=== PATIENT | male | born 1960 | race Caucasian/White ===

== ENCOUNTER → 2020-11-11 04:12 | Outpatient (CLI) | payer BC, SELFPAY ==
[2020-11-11 19:03] LABS: SARS-CoV-2 RNA PCR Negative
== END ==
PROVIDERS: PCP Family Medicine; Visit Provider Internal Medicine Gastroenterology
DX: Z01.812 Encounter for preprocedural laboratory examination (principal); Z20.822 Contact with and (suspected) exposure to COVID-19
CPT/HCPCS: C9803; U0003; U0005

== ENCOUNTER 2020-11-14 01:37 | Day surgery (SDC) | payer BC, SELFPAY ==
[2020-10-30 10:44] VITALS: BMI 33.5
[2020-11-14 06:46] VITALS: BP 147/89; PULSE 67; RESP 16; TEMP 35.6; O2SAT 99
[2020-11-14] MEDS: LACTATED RINGERS 1,000 ML 150 ML IV CONT (06:55)
--- NOTE | 2020-11-14 07:14 | PM.HPGS ---
History of Present Illness History of Present Illness Consent: Risks, benefits, and alternatives have been discussed and questions answered. Patient agrees to proceed with procedure. Chief complaint: neoplasm screening Narrative: Nael Head is a 59 year old male referred for colon cancer screening Review of Systems Review of Systems: All systems reviewed & are unremarkable except as noted in HPI and below PMFSH Family History Family History Mother Hypertension Family history of type 2 diabetes mellitus Social History Social History Alcohol intake: current Drinks per week: 4 Living arrangements: with family Gender identity (if verbalized by the patient): Male Spiritual care concerns: No Meds Home Medications and Allergies Home Medications Medication Instructions Recorded Confirmed Type albuterol sulfate 90 mcg/actuation 1 inh INHALATION Q4H #8.5 g 09/18/20 10/31/20 Rx aerosol inhaler budesonide-formoterol HFA 160 2 puff INHALATION Q12H #10.2 gm 09/22/20 10/31/20 Rx mcg-4.5 mcg/actuation aerosol inhaler Allergies Allergy/AdvReac Type Severity Reaction Status Date / Time No Known Allergies Allergy Mild Verified 11/14/20 06:41 Vital Signs Vital Signs - 24 hr 11/14/20 06:46 Temperature 35.6 C L Pulse Rate 67 Respiratory Rate 16 Blood Pressure 147/89 H Pulse Oximetry 99 Exam Resp: Auscultation: clear to auscultation bilaterally Cardio: Rate: regular rate Rhythm: regular rhythm GI: GI Palp: Yes Soft to palpation and No Tenderness to palpation present (GI) Assessment and Plan Assessment and plan (1) Colon cancer screening: Code(s): Z12.11 - Encounter for screening for malignant neoplasm of colon Status: Acute Assessment and Plan: Colonoscopy with possible biopsy or polypectomy or cautery or injection of substances.
--- NOTE | 2020-11-14 07:40 | WPDANESEPPF ---
Anes - Initial Pre Proc Eval Procedure: Operation Date: 11/14/20 08:00 Proposed Procedures p Screening Colonoscopy - Glenn Crump MD Date/Time: 11/14/20 07:40 Surgeon: Glenn Crump MD Pre Op Diagnosis: neoplasm screening Patient Data Age: 59 Gender: M Height: 5 ft 11 in Weight: 109.5 kg Last Vital Signs Temp 35.6 C L 11/14/20 06:46 Pulse 67 11/14/20 06:46 Resp 16 11/14/20 06:46 BP 147/89 H 11/14/20 06:46 Pulse Ox 99 11/14/20 06:46 Allergies Allergy/AdvReac Type Severity Reaction Status Date / Time No Known Allergies Allergy Mild Verified 11/14/20 06:41 Home Medications Medication Instructions Recorded Confirmed Type albuterol sulfate 90 mcg/actuation 1 inh INHALATION Q4H #8.5 g 09/18/20 10/31/20 Rx aerosol inhaler budesonide-formoterol HFA 160 2 puff INHALATION Q12H #10.2 gm 09/22/20 10/31/20 Rx mcg-4.5 mcg/actuation aerosol inhaler Patient hx anesthesia problems: none Family hx anesthesia problems: none PMFSH Past Medical History Medical History Reactive airways dysfunction syndrome Family History Family History Mother Hypertension Family history of type 2 diabetes mellitus Social History Social History Alcohol intake: current Drinks per week: 4 Living arrangements: with family Gender identity (if verbalized by the patient): Male Spiritual care concerns: No Anes - Eval Final PreProcedure Day of Procedure 11/14/20 07:40 Patient weight: obese Heart: regular rate and rhythm Lungs: clear to auscultation Airway: Mallampati scale class II Neurological: alert and oriented Last oral intake: >/= 8 hours ASA classification: II Emergent: no Anesthetic plan: proceed Anesthesia type and monitoring: general GIVS and standard monitoring Informed Consent: The patient's anesthetic plan and its attendant risks and benefits were discussed with the patient/family/POA. Questions were solicited and answers provided to the satisfaction of the patient/family/POA.
[2020-11-14] MEDS: SIMETHICONE ORAL SUSPENSION 20 MG/0.3 ML 30 ML BOTTLE 0.6 ML IRRIGATION (08:19)
[2020-11-14 08:28] VITALS: BP 112/78; PULSE 64; RESP 17; O2SAT 99
[2020-11-14 08:38] VITALS: BP 122/64; PULSE 66; RESP 18; O2SAT 99
== END 2020-11-14 09:03 | disposition home or self-care (01) ==
PROVIDERS: PCP Family Medicine; Visit Provider Internal Medicine Gastroenterology
PROC: 0DJD8ZZ Inspection of Lower Intestinal Tract, Via Natural or Artificial Opening Endoscopic (ICD-10-PCS; CPT 45378; principal; 2020-11-14 08:00)
DX: Z12.11 Encounter for screening for malignant neoplasm of colon (principal); D12.5 Benign neoplasm of sigmoid colon; K57.30 Diverticulosis of large intestine without perforation or abscess without bleeding; Z79.51 Long term (current) use of inhaled steroids; E66.9 Obesity, unspecified; Z68.33 Body mass index [BMI] 33.0-33.9, adult
CPT/HCPCS: 45385; 88305; J2704; J7120

== ENCOUNTER 2023-09-29 07:22 | Outpatient (CLI) | payer OTHER, SELFPAY ==
--- NOTE | ~2023-09-29 | CT_ITS ---
Clinical Indication: Shortness of breath CT Scan of the Chest with Contrast: Technique: Contiguous sections were acquired throughout the chest after intravenous administration of 75 cc of Omnipaque 350. Dose reduction technique was used on this scan by utilizing automated exposu re control and iterative reconstruction technique. The dose-length product (DLP) was 599.75 mGy-cm. Findings: There is no evidence of any significant mediastinal, hilar or axillary lymphadenopathy. No large cent ral pulmonary embolus identified. There is no evidence of aortic dissection or aneurysm. There is no evidence of pleural or pericardial effusion. The lungs are clear. No pulmonary nodules or infiltrates are noted. Images through the upper abdomen reveal diffuse fatty infiltration of the liver, and calcified gallst one. Impression: Clear lungs. Diffuse fatty infiltration of liver. Cholelithiasis. Reviewed, dictated and finalized at [facility]. T MGR Impression: Clear lungs. Diffuse fatty infiltration of liver. Cholelithiasis.
== END 2023-09-29 07:23 | disposition home or self-care (01) ==
PROVIDERS: PCP Emergency Medicine; Visit Provider Emergency Medicine
DX: R06.02 Shortness of breath (principal); R05.3 Chronic cough; Z77.090 Contact with and (suspected) exposure to asbestos; Z77.22 Contact with and (suspected) exposure to environmental tobacco smoke (acute) (chronic); Z57.9 Occupational exposure to unspecified risk factor; K76.0 Fatty (change of) liver, not elsewhere classified; K80.20 Calculus of gallbladder without cholecystitis without obstruction
CPT/HCPCS: 71260; Q9967

== ENCOUNTER 2023-10-10 08:43 | Outpatient (CLI) | payer OTHER, SELFPAY ==
--- NOTE | ~2023-10-10 | NM_ITS ---
EXAMINATION: NM rico stress w perfusion DATE: 10/10/2023 12:15 INDICATION: Precordial chest pain. TECHNIQUE: Rest images were obtained following intravenous administration of 11 mCi Tc99m tetrofosmin (Myoview). The patient was infused intravenously with Lexiscan (regadenoson). Then, 35 mCi Tc99m tet rofosmin (Myoview) was administered intravenously, and stress images were obtained. Data was reconstr ucted into short axis and horizontal and vertical long axis SPECT images. Gated SPECT images were als o obtained. COMPARISON: Chest CT 09/29/2023 FINDINGS: There is no definite reversible or fixed perfusion abnormality to suggest ischemia or infar ction. There is no segmental wall motion abnormality. Left ventricular ejection fraction measures > 70%. IMPRESSION: 1. No definite ischemia or infarct. 2. Normal left ventricular ejection fraction measuring >70%. Reviewed, dictated and finalized at location E. 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
--- NOTE | 2023-10-10 09:13 | EST_ITS ---
Patient Info Name: Nael Head Age: 62 years : 1960 Gender: Male Ht: 71 in Wt: 240 lbs BSA: 2.37 m2 HR: 67 bpm BP: 142 / 92 mmHg Heart Rhythm: Sinus Rhythm Exam Date: 10/10/2023 9:56 AM Exam Location: Echo Lab Patient Status: Outpatient Admit Date: 10/10/2023 Staff Ordering Physician: Mannie Nur MD Attending Provider: Mannie Nur MD Exercise Technologist: Britt Ludwig CT Exercise Physician: Johnathan Hill DO Exam Type: CA stress rico w NM Study Info Indications - PRECORDIAL PAIN A regadenoson stress test was performed. Summary 1. 1. Negative lexiscan stress test for ischemic ST changes by ECG criteria. 2. 2. Baseline hypertension. 3. 3. Nuclear scan to follow and will be reported separately. Please correlate with it. 4. 4. Patient informed of the above results. Protocol: Lexiscan Stress ECG Details Stage: REST Duration (min): 0 min : 57 sec HR (bpm): 69 SBP (mmHg): 142 DBP (mmHg): 94 Stage: REST Duration (min): 8 min : 46 sec HR (bpm): 73 SBP (mmHg): 142 DBP (mmHg): 94 Stage: STAGE 1 Duration (min): 0 min : 59 sec HR (bpm): 86 SBP (mmHg): 159 DBP (mmHg): 86 Stage: RECOVERY Duration (min): 1 min : 0 sec HR (bpm): 85 SBP (mmHg): 159 DBP (mmHg): 86 Stage: RECOVERY Duration (min): 2 min : 0 sec HR (bpm): 76 SBP (mmHg): 159 DBP (mmHg): 86 Stage: RECOVERY Duration (min): 2 min : 58 sec HR (bpm): 78 SBP (mmHg): 145 DBP (mmHg): 89 Rest HR: 73 bpm Peak HR: 87 bpm Rest Sys BP: 142 mmHg Peak Sys BP: 159 mmHg Max Pred HR: 159 bpm % Max Pred HR: 55 % Target HR: 135 bpm Max RPP: 13,833 bpm*mmHg Termination Reason: Completed protocol Cardiac Symptoms: Shortness of breath Total Time: 1 min : 0 sec Rest Bass BP: 94 mmHg Peak Bass BP: 86 mmHg Total Dose: 0.4 mg Resting ECG Sinus rhythm. Stress ECG No ST changes. Arrhythmias None. Report Signatures
== END 2023-10-10 08:44 | disposition home or self-care (01) ==
PROVIDERS: PCP Emergency Medicine; Visit Provider Emergency Medicine
DX: R07.2 Precordial pain (principal)
CPT/HCPCS: 78452; 93017; A9502; J2785

== ENCOUNTER 2024-10-02 08:14 | Outpatient (CLI) | payer BC, SELFPAY ==
--- OUTSIDE RECORDS SUMMARY | 2024-10-02 08:31 | XMS_ITS | Referral Summary ---
Author Organization [facility] Address [address] [place] [address] Care Team Providers Care Correction Officer Supervisor Name Role Phone Germán Khan MD Primary Care Provider [phone] Source Comments [facility],non-owned Affiliates and Associated Physician Practices is amultiple site organization consisting of ambulatory clinics and hospital sitesin [place], [place] and [place]. This disclosure is being madepursuant to the Care Everywhere program and may not contain all information available regarding this patient. Last updated 18.[facility] Social History Tobacco Use Types Packs/Day Years Used Date Smoking Tobacco: Never Assessed Sex and Gender Information Value Date Recorded Sex Assigned at Not on file Gender Identity Not on file Sexual Orientation Not on file Plan of Treatment Not on file Administered Medications Care Teams Correction Officer Supervisor Relationship Specialty Start Date End Date Germán Khan MD [address] [place] [address] [facility] - General 01/07/21
--- OUTSIDE RECORDS SUMMARY | 2024-10-02 08:31 | XMS_ITS | Encounter Summary ---
Author Organization [facility] Address [address] [place] [address] Care Team Providers Care Doubler Operator Name Role Phone Germán Khan MD Primary Care Provider [phone] Encounter Details Date Type Department Care Team (Late st Contact Info) Description 01/10/2023 Lab Requisition [facility] - DermPath Lab [address] [facility] [place] [id number] Lorna Chisholm DO [address] [facility] [address] [place] [address] Social History Tobacco Use Types Packs/Day Years Used Date Smoking Tobacco: Never Assessed Sex and Gender Information Value Date Recorded Sex Assigned at Not on file Gender Identity Not on file Sexual Orientation Not on file documented as of this encounter Plan of Treatment Not on file documented as of this encounter Procedures Procedure Name Priority Date/Time Associated Diagnosis Comments DERMATOPATHOLOGY Routine 01/10/2023 9:38 AM CDT documented in this encounter Results * DERMATOPATHOLOGY (01/10/2023 9:38 AM CDT) Case Report Dermatopathology Report Case: [id number] Authorizing Provider: Lorna Chisholm DO Collected: 01/10/2023 09:38 AM Ordering Location: [facility] DermPath Lab Received: 01/11/2023 06:14 AM Pathologist: Lesly Jasso MD Specimen: Skin, left shoulder 1:46 PM CDT DERMATOPATHOLOGY LABORATORY Final Diagnosis Specimen A. SKIN, left shoulder: LICHEN PLANUS-LIKE KERATOSIS (BENIGN LICHENOID KERATOSIS) (L82.1) 06/07/202 3 1:46 PM CDT DERMATOPATHOLOGY LABORATORY Clinical History R/O: NMSC 3 1:46 PM CDT DERMATOPATHOLOGY LABORATORY Gross Description Specimen A: Received is one formalin filled container labeled with the patient's name and designated left shoulder. The specimen consists of a shave biopsy measuring [id number]. Jar 0. 3 1:46 PM CDT DERMATOPATHOLOGY LABORATORY Microscopic Description Specimen A. SKIN, left shoulder: The epidermis is mildly acanthotic. There is a lichenoid infiltrate with vacuolar changes of basilar keratinocytes and scattered necrotic keratinocytes. 3 1:46 PM CDT DERMATOPATHOLOGY LABORATORY Disclaimer An external and internal positive and negative controls are appropriate for the histochemical, immunohistochemical and immunofluorescence stain(s) in this case (if any), except where stated explicitly. The performance characteristics of the stain(s) cited in this report were developed and its performance characteristic determined by the Dermatopathology Laboratory at [facility], directed by Dr. Bruno Joshi. These tests need not be, and therefore are not, approved by the [place] Food and Drug Administration. The tests are used for clinical purposes. Billing Codes Specimen Charges Stain Charges 02502 1 3 1:46 PM CDT DERMATOPATHOLOGY LABORATORY Embedded Images 3 1:46 PM CDT DERMATOPATHOLOGY LABORATORY Pathology/Cytolo gy TISSUE SPECIMEN FROM SKIN / Unknown 01/10/2023 9:38 AM CDT 01/11/2023 6:14 AM CDT Lorna Chisholm DO LAB - PATHOLOGY/C YTOLOGY ORDERABLES DERMATOPATHOLOGY LABORATORY [facility] - Department of Dermatology [facility] Medicine [address] [place] [address], [address] [phone] documented in this encounter Visit Diagnoses Not on filedocumented in this encounter Care Teams Doubler Operator Relationship Specialty Start Date End Date Germán Khan MD [address] [place] [address] PCP - General 01/07/21 documented as of this encounter
--- OUTSIDE RECORDS SUMMARY | 2024-10-02 08:31 | XMS_ITS | Clinical Summary ---
Author Organization [facility] Address [address] [place] [address] Care Team Providers Care Motion Picture Set Grip Name Role Phone Germán Khan MD Primary Care Provider [phone] Source Comments [facility],non-owned Affiliates and Associated Physician Practices is amultiple site organization consisting of ambulatory clinics and hospital sitesin [place], [place], [place] and [place]. This disclosure is being madepursuant to the Care Everywhere program and may not contain all information available regarding this patient. Last updated 18.[facility] Social History Tobacco Use Types Packs/Day Years Used Date Smoking Tobacco: Never Assessed Sex and Gender Information Value Date Recorded Sex Assigned at Not on file Gender Identity Not on file Sexual Orientation Not on file Plan of Treatment Health Maintenance Due Date Last Done Comments COLOGUARD (AGES 45-75) - COL ON CA SCREENING 1960 COLON MONITORING 1960 COLONOSCOPY - COLON CA SCREENING 1960 CT COLONOGRAPHY - COLON CA SCREENING 1960 Colorectal Cancer Screening 1960 FIT - COLON CA SCREENING 1960 FLEX SIG - COLON CA SCREENING 1960 LIPID TESTING 1960 HIV SCREENING 1976 HEPATITIS C SCREENING 11/12/1979 DTAP/TDAP/TD VACCINES (1 - Tdap) 1980 PNEUMOCOCCAL VACCINE 50+ (1 of 1 - PCV) 11/17/2011 ZOSTER VACCINE (1 of 2) 11/17/2011 COVID-19 VACCINE (3 - 2023-2 5 season) 2024 10/11/2020, 09/13/2020 INFLUENZA VACCINE (#1) 2024 , 06/07/2019, 06/26/2018 DEPRESSION SCREENING 08/08/2024 Respiratory Syncytial Virus (RSV) Vaccine Pt: or over 60 yrs (1 - 1-dose 75+ series) 2036 HEPATITIS B VACCINE Aged Out No longe r eligible based on patient's age to complete this topic HIB VACCINE Aged Out No longer eligi ble based on patient's age to complete this topic HPV VACCINE Aged Out No longer eligi ble based on patient's age to complete this topic MENINGOCOCCAL (Group B) VACCINE Aged Out No longer eligible b ased on patient's age to complete this topic MENINGOCOCCAL VACCINE Aged Out No leonardo eladio eligible based on patient's age to complete this topic PNEUMOCOCCAL VACCINE Aged Out No long er eligible based on patient's age to complete this topic Care Teams Motion Picture Set Grip Relationship Specialty Start Date End Date Germán Khan MD [address] [place] [id number] PCP - General 01/07/21
--- OUTSIDE RECORDS SUMMARY | 2024-10-02 08:31 | XMS_ITS | Patient Health Summary ---
Author Organization [facility] Address [address] [place] [address] Care Team Providers Care Cloth Printing Inspector Name Role Phone Germán Khan MD Primary Care Provider [phone] Note from [facility],non-owned Affiliates and Associated Physician Practices is amultiple site organization consisting of ambulatory clinics and hospital sitesin [place], [place], [place] and [place]. This disclosure is being madepursuant to the Care Everywhere program and may not contain all information available regarding this patient. Last updated 18.[facility] Social History Tobacco Use Types Packs/Day Years Used Date Smoking Tobacco: Never Assessed Sex and Gender Information Value Date Recorded Sex Assigned at Not on file Gender Identity Not on file Sexual Orientation Not on file Procedures * DERMATOPATHOLOGY(Performed 01/10/2023) * DERMATOPATHOLOGY(Performed 10/20/2021) * SKIN TEST PPD - POINT OF CARE(Performed 01/17/2021) Performed for Screening for tuberculosis Results * DERMATOPATHOLOGY (01/10/2023 9:38 AM CDT) Only the most recent of2 resultswithin the time period is included. Case Report Dermatopathology Report Case: [id number] Authorizing Provider: Lorna Chisholm DO Collected: 01/10/2023 09:38 AM Ordering Location: [facility] DermPath Lab Received: 01/11/2023 06:14 AM Pathologist: Lesly Jasso MD Specimen: Skin, left shoulder 3 1:46 PM CDT DERMATOPATHOLOGY LABORATORY Final Diagnosis Specimen A. 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 The specimen consists of a shave biopsy measuring [id number]. Jar 0. 3 1:46 PM CDT DERMATOPATHOLOGY [...] characteristic determined by the Dermatopathology Laboratory at [facility], directed by Dr. Bruno Joshi. These tests need not be, and therefore are not, approved by the [place] Food and Drug Administration. The tests are used for clinical purposes. Billing Codes Specimen Charges Stain Charges 48786 1 3 1:46 PM CDT DERMATOPATHOLOGY LABORATORY Embedded Images 3 1:46 PM CDT DERMATOPATHOLOGY LABORATORY Pathology/Cytolo gy TISSUE SPECIMEN FROM SKIN / Unknown 01/10/2023 9:38 AM CDT 01/11/2023 6:14 AM CDT Lorna Chisholm DO LAB - PATHOLOGY/C YTOLOGY ORDERABLES DERMATOPATHOLOGY LABORATORY [facility] - Department of Dermatology [address], [address] [phone] * SKIN TEST PPD - POINT OF CARE (01/17/2021 4:06 PM CDT) PPD 0mm [facility] [place] Other MISCELLANEOUS SAMPLE S / Unknown 01/17/2021 4:06 PM CDT Robert Serrano SUPERVISOR CAPACITOR PROCESSING-JAMMER OPERATOR LAB - POINT OF CARE ORDERABLES [place] [address], [facility] [phone] Care Teams Cloth Printing Inspector Relationship Specialty Start Date End Date Germán Khan MD [address] [place] [address] PCP - General 01/07/21
[2024-10-02 10:05] LABS: Basophils Absolute Auto 0.1 K/mm3 (0.0-0.1); Basophils Percent Auto 0.8 % (0.2-1.2); Eosinophils Absolute Auto 0.5 K/mm3 (0-0.3); Eosinophils Percent Auto 8.1 % (0-4.4); Hematocrit 52.5 % (42.0-52.0); Hemoglobin 17.1 g/dL (14.0-18.0); Immature Granulocyte Absolute 0.03 K/mm3 (0.00-0.031); Immature Granulocyte Percent A 0.5 % (0-0.5); Lymphocytes Absolute Auto 1.58 K/mm3 (0.9-3.2); Lymphocytes Percent Auto 25.5 % (18.3-44.2); Mean Corpuscular HGB Conc 32.6 g/dl (32-36); Mean Platelet Volume 9.4 fl (7.4-10.4); Monocytes Absolute Auto 0.7 K/mm3 (0.1-0.6); Monocytes Percent Auto 10.7 % (2.6-8.5); Neutrophils Absolute Auto 3.4 K/mm3 (1.3-6.7); Neutrophils Percent Auto 54.4 % (45.5-73.1); Platelet Count Result 169 k/mm3 (150-375); Red Cell Distribution Width 13.2 % (11.5-14.5); White Blood Count 6.2 K/mm3 (4.5-10.0)
[2024-10-02 10:27] LABS: Alanine Aminotransferase 105 U/L (6-50); Albumin Level 4.1 g/dL (3.5-5.1); Alkaline Phosphatase 77 U/L (38-126); Anion Gap 10 mmol/L (4-12); Aspartate Amino Transferase 125 U/L (17-59); Bilirubin,Total 1.2 mg/dL (0.2-1.3); Blood Urea Nitrogen 10 mg/dL (9-20); Calcium 8.8 mg/dL (8.4-10.2); Carbon Dioxide 25 mmol/L (22-30); Chloride 104 mmol/L (98-107); Cholesterol 175 mg/dL (0-200); Estimated Glomerular Filt Rate > 60; Glucose 112 mg/dL (65-110); HDL Direct 40 mg/dL; Potassium 3.9 mmol/L (3.4-5.0); Sodium 139 mmol/L (137-145); Triglycerides 73 mg/dL (<150)
[2024-10-02 10:38] LABS: LDL Cholesterol Direct 115 mg/dL
[2024-10-02 11:16] LABS: Prostate Specific Antigen 0.4 ng/mL (< OR = 4.0)
[2024-10-02 13:18] LABS: Hemoglobin A1C 5.7 % (<5.7)
== END 2024-10-02 08:15 | disposition home or self-care (01) ==
LOC: ANHGOSHLAB 08:15
PROVIDERS: PCP Clinical Nurse Specialist; Visit Provider Clinical Nurse Specialist
DX: D75.1 Secondary polycythemia (principal); Z12.5 Encounter for screening for malignant neoplasm of prostate; K76.0 Fatty (change of) liver, not elsewhere classified; R73.01 Impaired fasting glucose; E78.5 Hyperlipidemia, unspecified; I10 Essential (primary) hypertension
CPT/HCPCS: 36415; 80053; 80061; 83036; 84153; 84443; 85025; G0103

== ENCOUNTER 2024-10-02 08:30 | Outpatient (CLI) | payer BC, SELFPAY ==
--- NOTE | ~2024-10-02 | US_ITS ---
EXAM: ABDOMEN ULTRASOUND HISTORY: K76.0 - Fatty (change of) liver, not elsewhere classified COMPARISON: None FINDINGS: LIVER: The liver is increased in echogenicity and size measuring 19 cm in longitudinal dimension. GALLBLADDER: Shadowing stone is identified within the neck of the gallbladder, which is otherwise unr emarkable. No gallbladder wall thickening or pericholecystic fluid. BILE DUCTS: Common bile duct measures 4mm. PANCREAS: Limited evaluation of the pancreas secondary to overlying bowel gas IMPRESSION: Cholelithiasis, without ultrasound evidence of cholecystitis. Fatty infiltration of an enlarged liver. Reviewed, dictated and finalized at location A. R PRODUCTION WORKER
== END 2024-10-02 08:31 | disposition home or self-care (01) ==
PROVIDERS: PCP Clinical Nurse Specialist; Visit Provider Clinical Nurse Specialist
DX: K76.0 Fatty (change of) liver, not elsewhere classified (principal); K80.20 Calculus of gallbladder without cholecystitis without obstruction
CPT/HCPCS: 76705